=== PATIENT | female | born 1950 | race Caucasian/White ===

== ENCOUNTER 2022-04-28 09:11 | Emergency (ER) | payer OTHER, SELFPAY ==
[2022-04-28 09:32] VITALS: BP 175/100; PULSE 72; RESP 18; TEMP 37.1; O2SAT 98; BMI 28.3
--- NOTE | 2022-04-28 09:57 | ED.DIZZY ---
HPI - Dizziness General Chief Complaint: Dizziness/Vertigo Stated Complaint: Dizzy Time Seen by Provider: 04/28/22 09:13 History of Present Illness HPI Narrative: This 71-year-old female comes in reporting some vertigo symptoms that started 4 days ago. She had rather intense symptoms on that day but these symptoms have almost completely resolved. She does have some very mild residual vertigo symptoms that are present only with movements. When remaining still she has no symptoms. She called the clinic and was instructed to come here for evaluation. She does not have any neurologic deficits. Her speech is normal and she is ambulating normally. She did have some nausea when the vertigo was more intense but no longer has this. She does feel some fullness or dullness in her right ear but did not have any associated ringing or roaring in her ear or hearing loss. Related Data Home Medications Medication Instructions Recorded Confirmed atorvastatin 10 mg tablet 10 mg PO DAILY 04/28/22 04/28/22 lisinopril 10 mg tablet 10 mg PO DAILY 04/28/22 04/28/22 Previous Rx's Medication Instructions Recorded meclizine 25 mg tablet 25 mg PO QID #20 tabs 04/28/22 ondansetron HCl 4 mg tablet 4 mg PO Q6H #20 tabs 04/28/22 Allergies Allergy/AdvReac Type Severity Reaction Status Date / Time Sulfa (Sulfonamide Allergy Rash Verified 04/28/22 09:36 Antibiotics) Review of Systems Status of ROS: Reports: 10 or more systems reviewed and unremarkable except as noted in History and below Narrative: Constitutional: No fevers, no weight gain or loss. Eyes: No discharge. No vision changes. HENT: No congestion, no sore throat, no ear pain. Cardiovascular: No chest pain, no palpitations. Respiratory: No shortness of breath, no wheezes, no cough. Gastrointestinal: No abdominal pain, no vomiting, no diarrhea. Genitourinary: No dysuria, no hematuria. Musculoskeletal: Normal range of motion. Skin: No rashes, no pruritis. Neurological: No weakness, sensory change, speech change. Vertigo symptoms as described above. Endo/Heme/Allergies: No bruising or bleeding. No polydipsia. Pysch: no suicidality, no anxiety, no insomnia. All other systems reviewed and are negative. PFSH PFSH Social History Smoking Status: Never smoker Do you use any of these nicotine containing products: None Second hand tobacco smoke exposure: No How often do you have a drink containing alcohol: 2-3 times a week How many standard drinks containing alcohol do you have on a typical day: 1 or 2 How often do you have six or more drinks on one occasion: Never AUDIT-C Alcohol total score: 3 Non-prescribed substance use: denies use Exam Narrative: Exam Narrative: Constitutional: Well-developed, well-nourished, no acute distress. HEENT: Normocephalic, atraumatic. Neck: Normal range of motion. Nontender. Supple. Heart: Regular. No murmurs. Normal rate. Intact distal pulses. Lungs: Clear to auscultation. No chest discomfort. No wheezes, rhonchi, or rales. Abdomen: Normal bowel sounds. Nontender. No rebound tenderness. Genitalia: Deferred. Back: No midline tenderness. Normal range of motion. Extremities: Normal range of motion. No injury. Skin: Intact. No rash. Warm. No erythema or pallor. Neurologic: No altered sensation. No weakness. Alert and oriented. No nystagmus. No facial asymmetry. [employer] strength is equal bilaterally. [id number] is normal. No pronator drift. Heel to porter is normal. Psychiatric: No suicidality. No anxiety or depression. No insomnia. Nursing notes and vitals signs are reviewed. Const: Vital Signs, click to edit/add: Vital Signs - 24 hr 04/28/22 09:32 Temperature 98.8 F Pulse Rate [Right Pulse Oximeter] 72 Respiratory Rate 18 Blood Pressure [Ri ght Upper Arm] 175/100 H Pulse Oximetry 98 Oxygen Delivery Me thod Room Air Course Vital Signs Vital signs: Initial Vital Signs Temperature 98.8 F 04/28/22 09:32 Temperature Source Temporal Artery Scan 04/28/22 09:32 Pulse Rate 72 04/28/22 09:32 Pulse Rhythm 04/28/22 09:32 Respiratory Rate 18 04/28/22 09:32 Blood Pressure 175/100 H 04/28/22 09:32 Blood Pressure Mean 125 04/28/22 09:32 Blood Pressure Position Sitting 04/28/22 09:32 Pulse Oximetry 98 04/28/22 09:32 Oxygen Delivery Method 04/28/22 09:32 Vital Signs Temperature 98.8 F 04/28/22 09:32 Pulse Rate 72 04/28/22 09:32 Respiratory Rate 18 04/28/22 09:32 Blood Pressure 175/100 H 04/28/22 09:32 Pulse Oximetry 98 04/28/22 09:32 Oxygen Delivery Method 04/28/22 09:32 Temperature 98.8 F 04/28/22 09:32 Pulse Rate 72 04/28/22 09:32 Respiratory Rate 18 04/28/22 09:32 Blood Pressure 175/100 H 04/28/22 09:32 Pulse Oximetry 98 04/28/22 09:32 Oxygen Delivery Method 04/28/22 09:32 MDM - Dizziness MDM Narrative Medical decision making narrative: This patient comes in with typical vertigo symptoms from vestibular neuritis. She is not exhibiting any central symptoms as her neurologic exam is completely normal. Additionally her symptoms are absent when remaining still and even now are rather mild whenever they occur. I discussed differences between central and peripheral vertigo and indicated that there are some options for labs and imaging that can be done today but for peripheral vertigo these results are normal. In a process of shared decision making she declined any further study at this time. I did describe signs and symptoms that would indicate a need for return and re-evaluation. She did received prescription for meclizine and Zofran. Discharge Plan Discharge Clinical Impression: Acute vestibular neuronitis Patient Disposition: Home, Self-Care Condition: Stable Instructions: Vertigo (ED) Additional Instructions: Take medication as needed and indicated. Follow up with MD or return if worsening symptoms happen. Prescriptions: New meclizine 25 mg tablet 25 mg PO QID Qty: 20 0RF ondansetron HCl 4 mg tablet 4 mg PO Q6H Qty: 20 0RF No Action atorvastatin 10 mg tablet 10 mg PO DAILY Label Comments: TAKE 1 TABLET BY MOUTH EVERY DAY lisinopril 10 mg tablet 10 mg PO DAILY Label Comments: TAKE 1 TABLET BY MOUTH EVERY DAY Follow Up/Referrals: Charlene Palmer MD [Primary Care Provider] - Stand Alone Forms: [employer] Info Instructions
[2022-04-28 10:38] VITALS: BP 140/80; PULSE 61; RESP 20; O2SAT 97
== END 2022-04-28 10:23 | disposition home or self-care (01) ==
LOC: ED 10:12
PROVIDERS: Emergency Provider Emergency Medicine Emergency Medical Services; PCP Family Medicine
DX: H81.20 Vestibular neuronitis, unspecified ear (principal)
CPT/HCPCS: 99283; 99284

== ENCOUNTER 2022-06-24 08:15 | Outpatient (RCR) | payer OTHER, SELFPAY | END 2022-07-27 15:01 | disposition home or self-care (01) | PROVIDERS: PCP Family Medicine; Visit Provider Family Medicine | DX: H81.10 Benign paroxysmal vertigo, unspecified ear (principal); Z51.89 Encounter for other specified aftercare | CPT/HCPCS: 97110; 97162 ==

== ENCOUNTER 2023-12-23 06:57 | Day surgery (SDC) | payer OTHER, SELFPAY ==
[2023-12-23] VITALS (15 sets, daily range): BP systolic 148–170; BP diastolic 68–99; PULSE 66–94; RESP 12–16; TEMP 36.1–36.8; O2SAT 91–97; BMI 33.0
[2023-12-23] MEDS: SODIUM CHLORIDE 0.9 % (FLUSH) 10 ML SYRINGE IVF (07:48)
[2023-12-23] MEDS: LACTATED RINGERS 1000 ML 1,000 ML 100 ML IV (07:48)
--- NOTE | 2023-12-23 07:57 | W.PM.H&PU ---
History & Physical Update History & Physical Update H&P Reviewed and patient assessed: No changes noted
--- NOTE | 2023-12-23 07:57 | PM.ORPRC ---
Procedure Note Date of procedure: 12/23/23 Procedure: PREOPERATIVE DIAGNOSIS: 1. Closed, displaced, comminuted, left clavicle shaft fracture POSTOPERATIVE DIAGNOSIS: 1. Closed, displaced, comminuted, left clavicle shaft fracture PROCEDURE: 1. Left clavicle open reduction internal fixation 2. 85193 - Intraoperative fluoroscopy up to 1 hour SURGEON: Ravi Burks MD. INFORMATION SYSTEMS OPERATOR: Katy Mccoy P.A.-C. An assistant professor of music was critical for this case to aid in patient positioning, tissue retraction, limb manipulation/positioning, and closure. ANESTHESIA: General IMPLANTS: Arthrex 8 hole locking clavicle plate ESTIMATED BLOOD LOSS: 5 mL COMPLICATIONS: None INDICATIONS: The patient is a pleasant 73-year-old female who sustained displaced left clavicle fracture after an injury earlier this week following a ground level fall. Due to the amount of displacement and comminution, recommendation was made for surgical intervention consisting of left clavicle open reduction internal fixation. Prior to surgery, the risks and benefits of procedure were discussed with patient, all questions were answered, and informed consent was obtained. FINDINGS: Closed, displaced, comminuted, left clavicle shaft fracture. DESCRIPTION OF PROCEDURE: Following a thorough discussion of risks, benefits, and alternatives; informed consent was obtained; and the operative site was marked. The patient was brought to the operating room and placed supine on the operating table. General anesthesia was administered and patient was given 2 g IV Ancef preoperatively for prophylaxis. Patient was then rotated into the beach chair position. Head was placed in the padded head of training and development, and all bony prominences were well padded. The operative shoulder was then prepped and draped in usual sterile fashion. A surgical time-out was performed confirming proper patient, surgical site, and procedure. Subcutaneous tissues overlying the proposed surgical incision site were injected with 0.25% Marcaine with epinephrine. A longitudinal incision was then made along the anterior border of the clavicle centered over the fracture site. Blunt dissection was to dissect the subcutaneous tissues until the clavipectoral fascia was identified. Clavipectoral fascia was split in line with the incision with care taken to preserve traversing supraclavicular nerves. Deep dissection was carried down to the fracture site. Fracture site was cleared of fracture hematoma. Fracture was noted to be comminuted. One comminuted piece was reduced and fixed with a 2.5 mm inter frag screw. Clavicle fracture was then reduced and held in place with clamps. An 8 hole Arthrex clavicle locking plate was then selected and contoured to fit on the superior aspect of the clavicle. This was provisionally fixed to the clavicle with BB tacks. Fluoroscopic imaging was used to confirm near anatomic reduction of the fracture with good placement of the plate. The plate was then fixed proximally and distally with a combination of 3.5 mm locking screws and 3.5 mm nonlocking screws. Total of 3 screws were placed medial to the fracture site and 3 screws placed lateral to the fracture site. After the plate was secured, clamps were removed. A smaller butterfly fragment was then reduced and secured to the plate with 0 Vicryl suture. Final fluoroscopic images were obtained which confirmed near anatomic reduction of the fracture with good placement of the plate and screws. The incision site was then irrigated copious amounts of normal saline. The clavipectoral fascia was repaired over the plate using 0 Vicryl [id number] interrupted sutures. Wounds were again irrigated normal saline. Skin was then closed with 3-0 Vicryl and 2-0 Stratafix subcuticular stitches followed by Dermabond. Subcutaneous tissues were again injected with 0.25% Marcaine with epinephrine. Sterile dressing was applied. Patient then rotated back in supine position and was awoken from anesthesia. Operative arm was placed into a simple sling. The patient was then transferred to the PACU in stable condition. PLAN: 1. Nonweightbearing operative upper extremity 2. Sling as needed for comfort 3. Ice and elevation for pain and swelling 4. Gallitzin or Tylenol as needed for pain control 5. Remove sling for gentle passive range of motion exercises several times daily. 6. Follow-up in Orthopedic Clinic in 10-14 days for wound check. 7. Start formal physical therapy in 2 weeks.
--- NOTE | 2023-12-23 08:30 | XR_ITS ---
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 Site :?[id number] Study:?XRay-Shoulder Left Clavicle w/ c-arm-12/23/2023 10:27:27 AM Ordering Physician:?Carl Burks Final Report: Indication: Left clavicle ORIF Technique: Two fluoroscopic images of the left clavicle. Fluoroscopic time 8.5 seconds. IMPRESSION: Fluoroscopic guidance for ORIF left clavicle fracture. Dictated by Israel Jalloh MD @ 12/23/2023 11:55:15 AM Signed by:?Israel Jalloh MD @12/23/2023 11:55:15 AM (Electronic Signature)
[2023-12-23] MEDS: CEFAZOLIN 2 GM INJ IVP (08:45)
[2023-12-23] MEDS: BUPIVACAINE 0.5 %/EPI 1:200K 30 ML INJECTION (10:06)
--- NOTE | 2023-12-23 10:50 | W.ANESCHARGE ---
Anesthesia Charges Start Date/Time Anesthesia Start Date: 12/23/23 Anesthesia Start Time: 08:41 Stop Date/Time Anesthesia Stop Date: 12/23/23 Anesthesia Stop Time: 10:50
--- NOTE | 2023-12-23 11:00 | W.ANESCHARGE ---
Anesthesia Charges Start Date/Time Anesthesia Start Date: 12/23/23 Anesthesia Start Time: 08:41 Stop Date/Time Anesthesia Stop Date: 12/23/23 Anesthesia Stop Time: 10:50 Summary Extremes of Age - Over 70 or under 1: MDA
[2023-12-23] MEDS: LACTATED RINGERS 1000 ML 1,000 ML 35 ML IV (11:01)
[2023-12-23] MEDS: fentaNYL 100 MCG/2 ML inj 50 MCG IVP (11:08)
--- NOTE | 2023-12-23 13:10 | SUR.PHASEII ---
incentive inspirometer sent home with pt
== END 2023-12-23 13:11 | disposition home or self-care (01) ==
PROVIDERS: PCP Family Medicine; Visit Provider Orthopaedic Surgery
PROC: (CPT 23515; principal; 2023-12-23 08:30)
DX: S42.022A Displaced fracture of shaft of left clavicle, initial encounter for closed fracture (principal)
CPT/HCPCS: 23515; 00450; 01630; 73000; 76000; 99100; C1713; J0330; J0690; J1100; J2405; J2704; J3010; J3490; J7120

== ENCOUNTER 2024-02-14 14:30 | Outpatient (RCR) | payer OTHER, SELFPAY ==
--- NOTE | 2024-01-27 15:50 | PT.OPEX ---
PT [place] Outpatient Eval PT [facility] Outpatient Eval Start: 01/27/24 10:46 Freq: Status: Active Protocol: Document 01/27/24 13:15 LITTLE (Rec: 01/27/24 15:47 LITTLE [id number]) E-signed By Sami Maldonado PT Physical Therapy Outpatient Evaluation Insurance Information Insurance Name Medicare B,Other; See Comments Insurance Information/Comments [employer] Medical Diagnosis Left shoulder clavicle fracture Left shoulder clavicle ORIF () Treating Diagnosis Left shoulder stiffness Left shoulder weakness Referring Katy Dhaliwal Subjective Subjective Pt. states that she fell and sustained a fractured left clavicle. She ended up having surgery for ORIF on 12/23/23. She wore a sling for a short time but hasn't been using it lately, just being careful to not overdo it with left arm use. She denies any current pain, feeling like she is doing very well overall. Pain Comments 0-1 Date of Last Physician Visit 01/03/24 Date of Surgery (If applicable) 12/23/23 Current Work Status Retired Preferred Name Miriam Precautions Treatment Precautions/Contraindications PROM only until ortho apt on Objective Other/Pertinent Objective right shoulder ROM WNL left shoulder PROM: flexion 140; ER 80 deg; IR 75 deg; abduction 90 deg. left elbow, wrist, and hand ROM and strength WNL mild hypertonus of left deltoid and upper trap muscles Assessment Assessment/Impression Objectively, pt. demonstrates; normal right shoulder AROM and functional strength; decreased left shoulder PROM with mild deficits currently; mild guarding of left deltoid and upper trap; left cuff and scapular weakness/ deconditioning; and normal left elbow, wrist and hand ROM and strength. She would benefit from skilled therapy working on progressive ROM and then strengthening when Ok'd by Ortho team. Primary Functional Limitations reaching, lifting, lying on left. Plan of Care Rehabilitation Potential Excellent Physical Therapy Goals 1. Pt. will be indep. with HEP for self maintenance in 8 weeks. 2. Pt. will demonstrate improved shoulder AROM to WNL in 8 weeks. 3. Pt. will be able to raise arm overhead for ADL's without difficulty in 8 weeks. Coordination/Communication With Referral Source Treatment Plan/Direct Interventions Manual Therapy,Neuromuscular Re-ed,Self-Care/Home Management,Therapeutic Exercises Frequency/Duration 3-6 visits over 8 weeks. Patient Will Be Discharged From Therapy Independent w/HEP, Independently Progressing Evaluation Billing Complexity Low Certification Information Initial Certification Date 01/27/24 Ending Certification Date 04/26/24 Provider Signature Shows Agreement With POC & Medical Necessity Physician Signature & Date Requested Please Sign/Date Here Physician Comment/Change : Physician NPI Number #
== END 2024-05-04 08:24 | disposition home or self-care (01) ==
PROVIDERS: PCP Family Medicine; Visit Provider Physician Assistant Surgical
DX: S42.022A Displaced fracture of shaft of left clavicle, initial encounter for closed fracture (principal); Z51.89 Encounter for other specified aftercare
CPT/HCPCS: 97110; 97161

== ENCOUNTER 2024-03-16 09:45 | Outpatient (CLI) | payer OTHER, SELFPAY ==
--- NOTE | 2024-03-16 10:54 | W.ANESCHARGE ---
Anesthesia Charges Start Date/Time Anesthesia Start Date: 03/16/24 Anesthesia Start Time: 11:02 Stop Date/Time Anesthesia Stop Date: 03/16/24 Anesthesia Stop Time: 11:23 Summary Extremes of Age - Over 70 or under 1: MDA
--- NOTE | 2024-03-16 11:24 | W.ANESCHARGE ---
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
== END 2024-03-16 09:46 | disposition home or self-care (01) ==
LOC: OP CLINIC 09:45
PROVIDERS: PCP Family Medicine; Visit Provider Internal Medicine Gastroenterology
DX: Z12.11 Encounter for screening for malignant neoplasm of colon (principal); K64.8 Other hemorrhoids; Z86.010 Personal history of colon polyps
CPT/HCPCS: 00811; 00812; 45378; 99100; J2704

== ENCOUNTER 2024-08-24 07:45 | Outpatient (RCR) | payer OTHER, SELFPAY | END 2024-09-28 14:11 | disposition home or self-care (01) | PROVIDERS: PCP Family Medicine; Visit Provider Family Medicine | DX: M70.62 Trochanteric bursitis, left hip (principal); M25.552 Pain in left hip; M62.81 Muscle weakness (generalized); Z74.09 Other reduced mobility; Z51.89 Encounter for other specified aftercare | CPT/HCPCS: 97110; 97140; 97161 ==

== ENCOUNTER 2025-02-03 11:52 | Outpatient (CLI) | payer MEDICARE, SELFPAY | END 2025-02-03 11:53 | disposition home or self-care (01) | LOC: NFLDREF 02-04 01:35 | PROVIDERS: PCP Family Medicine; Referring Provider Family Medicine; Visit Provider Family Medicine | DX: N30.00 Acute cystitis without hematuria (principal); B96.20 Unspecified Escherichia coli [E. coli] as the cause of diseases classified elsewhere | CPT/HCPCS: 87086 ==